=== PATIENT | female | born 1985 | race Caucasian/White ===

== ENCOUNTER 2019-07-09 11:16 | Emergency (ER) | payer MEDICAID ==
[~2019-07-09] VITALS: Ht 152.4 cm; Wt 77.1 kg
--- NOTE | 2019-07-09 11:25 | NUR ---
CAME IN FOR ABSCESS/CELLULITIS, PUBIC AREA X 1 WEEK, TO ER BED 12, HOOKED TO MONITOR, DR HASSAN AT BEDSIDE
[2019-07-09] MEDS ORDERED: IBUPROFEN 600 MG TABLET PO ONE ×2 (12:00→12:06)
[2019-07-09 12:09] VITALS: BP 122/71
--- NOTE | 2019-07-09 12:09 | NUR ---
Patient discharged to home in stable condition. Written and verbal after care instructions given. Patient verbalizes understanding of instruction.
== END 2019-07-09 12:10 | disposition home or self-care (01) ==
LOC: ER 11:17
DX: L73.9 Follicular disorder, unspecified (principal)

== ENCOUNTER 2024-05-08 19:54 | Emergency (ER) | payer MEDICAID, OTHER ==
[~2024-05-08] VITALS: Ht 165.1 cm; Wt 81.6 kg
[2024-05-08] MEDS ORDERED: CEPH500T PO (21:31)
[2024-05-08] MEDS ORDERED: IBUP-1490 PO (21:31)
[2024-05-08] MEDS ORDERED: ACETAMINOPHEN ES 500 MG TABLET ONE (21:34)
[2024-05-08] MEDS ORDERED: IBUPROFEN 600 MG TABLET ONE (21:34)
[2024-05-08] MEDS: IBUPROFEN 600 MG TABLET PO ONE (21:38)
[2024-05-08] MEDS: ACETAMINOPHEN ES 500 MG TABLET PO ONE (21:39)
[2024-05-08 21:40] VITALS: BP 145/90; TEMP 98.6; O2SAT 98
== END 2024-05-08 21:43 | disposition home or self-care (01) ==
LOC: ER 19:58
DX: K08.89 Other specified disorders of teeth and supporting structures (principal); K05.10 Chronic gingivitis, plaque induced